=== PATIENT | male | born 1955 | race Caucasian/White ===

== ENCOUNTER → 2016-06-26 | Outpatient (CLI) | payer BC ==
[2016-06-09 11:00] VITALS: BP 150/72
[~2016-06-26] MED LIST: ASPI-482 PO; ASPI325T11 PO; ASPI81TA2 PO; CELE200C PO; GABA-586 PO; GLIM2TAB2 PO; GLUC1TAB44 PO; IRON18TA PO; LISI10TA2 PO; LOVA10TA PO; MAGN400C PO; METF100010 PO; MULT-91 PO; OMEG1CAP6 PO; OMEP40CA5 PO; POTA10TA10 PO; TIZA4CAP PO; TRAZ150T55 PO; TURM500C8 PO; WARF10TA PO
--- NOTE | 2016-06-26 14:24 | RAD ---
Left lower extremity venous ultrasound, 06/26/2016 : History: Left leg pain and swelling Duplex evaluation including grayscale, color flow and spectral Doppler analysis was performed. The femoral and popliteal veins show no filling defects to suggest DVT. The occlusive thrombus present in the left popliteal vein on the 05/31/2016 study has resolved. The visualized calf veins are unremarkable. IMPRESSION: Resolution of the previously seen left popliteal vein DVT.
== END | disposition home or self-care (01) ==
LOC: US 10:03
PROVIDERS: ATTEND Family Medicine
DX: I82.402 Acute embolism and thrombosis of unspecified deep veins of left lower extremity (principal); M79.605 Pain in left leg; R60.0 Localized edema; M79.89 Other specified soft tissue disorders
CPT/HCPCS: 93971

== ENCOUNTER → 2016-08-01 | Outpatient (CLI) | payer BC ==
[2016-06-09 11:00] VITALS: BP 150/72
--- NOTE | 2016-08-02 09:12 | RAD ---
Left lower extremity venous ultrasound, 08/01/2016 : History: Left calf pain and swelling Duplex evaluation including grayscale, color flow and spectral Doppler analysis was performed. The femoral and popliteal veins show no filling defects to suggest DVT. The visualized calf veins are unremarkable. Considerable subcutaneous edema is noted in the left calf. IMPRESSION: There is no sonographic evidence of deep vein thrombosis in the left lower extremity
== END | disposition home or self-care (01) ==
LOC: US 16:21
PROVIDERS: ATTEND Orthopaedic Surgery
DX: M79.662 Pain in left lower leg (principal)
CPT/HCPCS: 93971

== ENCOUNTER 2017-06-03 11:55 | Emergency (ER) | payer BC ==
[2017-06-03] MEDS ORDERED: KETOROLAC 60 MG/2 ML INJ. IM (12:15)
[2017-06-03] MEDS: ORPHENADRINE CITRATE 60 MG/2 ML VIAL. IM (12:22)
[2017-06-03] MEDS: fentaNYL PF VIAL 100 MCG/2 ML VIAL IM (12:22)
== END 2017-06-03 13:03 | disposition home or self-care (01) ==
LOC: ER 11:55
DX: S39.012A Strain of muscle, fascia and tendon of lower back, initial encounter (principal); E11.9 Type 2 diabetes mellitus without complications; E78.00 Pure hypercholesterolemia, unspecified; I10 Essential (primary) hypertension; Z88.2 Allergy status to sulfonamides; Z91.013 Allergy to seafood; Z91.048 Other nonmedicinal substance allergy status; X58.XXXA Exposure to other specified factors, initial encounter; Y93.89 Activity, other specified; Y99.8 Other external cause status; Y92.89 Other specified places as the place of occurrence of the external cause
CPT/HCPCS: 96372; 99284-25; J2360; J3010

== ENCOUNTER 2019-04-18 09:48 | Emergency (ER) | payer MEDICARE ==
[~2019-04-18] VITALS: Ht 177.8 cm; Wt 117.0 kg
[~2019-04-18 09:48] MED LIST changes: +ACET-704 PO; +ASPI-630 PO; -ASPI81TA2 PO; +CYCL10TA2 PO; -GABA-586 PO; +GABA300C18 PO; -GLIM2TAB2 PO; +GLIM2TAB3 PO; +MULT-629 PO; -MULT-91 PO; +OMEP40CA45 PO; -OMEP40CA5 PO; -POTA10TA10 PO; +POTA10TA12 PO; +TRAZ150T49 PO; -TRAZ150T55 PO; +TURM500C4 PO; -TURM500C8 PO; -WARF10TA PO; +WARF10TA45 PO
[2019-04-18 10:33] VITALS: BP 136/63
[2019-04-18] MEDS ORDERED: ORPHENADRINE CITRATE 60 MG/2 ML VIAL. IM ONE (11:00)
[2019-04-18] MEDS ORDERED: KETOROLAC 60 MG/2 ML VIAL. IM ONE (11:00)
[2019-04-18] MEDS ORDERED: ORPH100T PO (11:01)
[2019-04-18] MEDS ORDERED: NAPR-514 PO (11:01)
--- NOTE | 2019-04-18 11:02 | PHYS DOC ---
Past Medical History Past Medical History: Diabetes-Type II, High Cholesterol, Hypertension, Other Past Surgical History: Knee Replacement, Tonsillectomy Additional Past Surgical Histo: bilat knee, R foot, hernia, sinus Alcohol Use: None Drug Use: None Adult General Chief Complaint Chief Complaint: LOWER BACK PAIN OR INJURY HPI HPI Patient is a 63 year old male, accompanied by his , who presents to the emergency department with complaints of bilateral low back pain and spasms for the last 2 days. Patient states that the symptoms increased after he was seen by a chiropractor for an adjustment 2 days ago. Patient states initially after the adjustment his back felt better, but the relief only helped for a short period time. He denies any saddle anesthesia, or loss of bowel/bladder control. Patient denies any increased urinary frequency, hematuria, dysuria, incontinence, numbness, tingling, or weakness. Patient states he has a history of chronic back pain, he has been taking his oxycodone and Flexeril with no relief of his symptoms. Currently, he rates his pain a 10 out of 10 on the pain scale, the pain increases with movement. Review of Systems Review of Systems Constitutional: Denies fever or chills [] Eyes: Denies change in visual acuity, redness, or eye pain [] HENT: Denies nasal congestion or sore throat [] Respiratory: Denies cough or shortness of breath [] Cardiovascular: No additional information not addressed in HPI [] GI: Denies abdominal pain, nausea, vomiting, bloody stools or diarrhea [] : Denies dysuria or hematuria [] Musculoskeletal: Denies back pain or joint pain [] Integument: Denies rash or skin lesions [] Neurologic: Denies headache, focal weakness or sensory changes [] Endocrine: Denies polyuria or polydipsia [] All other systems were reviewed and found to be within normal limits, except as documented in this note. Current Medications Current Medications Current Medications Medications (Trade) Dose Ordered Sig/Nito Start Time Stop Time Status Last Admin Dose Admin Ketorolac Tromethamine (Toradol Im) 30 mg 1X ONCE 04/18/19 11:00 04/18/19 11:01 04/18/19 10:53 30 MG Orphenadrine Citrate (Norflex) 60 mg 1X ONCE 04/18/19 11:00 04/18/19 11:01 04/18/19 10:53 60 MG Allergies Allergies Allergies Coded Allergies Type Severity Reaction Last Updated Verified Sulfa (Sulfonamide Antibiotics) Allergy Intermediate 05/23/16 No shrimp Allergy Intermediate 05/23/16 Yes tree and shrub pollen Allergy Intermediate 05/23/16 Yes Uncoded Allergies Type Severity Reaction Last Updated Verified DUST Allergy Intermediate 03/09/16 Physical Exam Physical Exam Constitutional: Well developed, well nourished, no acute distress, non-toxic appearance. [] HENT: Normocephalic, atraumatic, bilateral external ears normal, oropharynx moist, no oral exudates, nose normal. [] Eyes: PERRLA, EOMI, conjunctiva normal, no discharge. [] Neck: Normal range of motion, no tenderness, supple, no stridor. [] Cardiovascular:Heart rate regular rhythm, no murmur [] Lungs & Thorax: Bilateral breath sounds clear to auscultation [] Abdomen: Bowel sounds normal, soft, no tenderness, no masses, no pulsatile masses. [] Skin: Warm, dry, no erythema, no rash. [] Back: No tenderness, no CVA tenderness. [] Extremities: No tenderness, no cyanosis, no clubbing, ROM intact, no edema. [] Neurologic: Alert and oriented X 3, normal motor function, normal sensory function, no focal deficits noted. [] Psychologic: Affect normal, judgement normal, mood normal. [] Current Patient Data Vital Signs Vital Signs Date Time Temp Pulse Resp B/P (MAP) Pulse Ox O2 Delivery O2 Flow Rate FiO2 04/18/19 10:33 97.9 83 16 136/63 (87) 99 Room Air 97.9 EKG EKG [] Radiology/Procedures Radiology/Procedures [] Course & Med Decision Making Course & Med Decision Making Pertinent Labs and Imaging studies reviewed. (See chart for details) [] Dragon Disclaimer Dragon Disclaimer This electronic medical record was generated, in whole or in part, using a voice recognition dictation system. Departure Departure Impression: Primary Impression: Low back pain Disposition: 01 HOME, SELF-CARE Condition: STABLE Referrals: RAFI DUGGAN MD (PCP) Patient Instructions: Back Pain, Adult, [id number] Additional Instructions: Fill the prescriptions and use as directed. Activity as tolerated. Apply ice or heat to sore areas as needed for comfort. Follow-up with your primary care doctor in the next 1-2 days. Return to the emergency room if your symptoms worsen. Scripts Naproxen (NAPROXEN) 500 Mg Tablet 1 TAB PO BID PRN for PAIN for 10 Days, #20 TAB 0 Refills Prov: JESSICA NEVES APRN 04/18/19 Orphenadrine Citrate (ORPHENADRINE CITRATE) 100 Mg Tablet.er 1 TAB PO BID PRN for PAIN for 10 Days, #20 TAB 0 Refills Prov: JESSICA NEVES APRN 04/18/19 Problem Qualifiers Primary Impression: Low back pain Chronicity: acute Back pain laterality: bilateral Sciatica presence: without sciatica Qualified Codes: M54.5 - Low back pain JESSICA NEVES APRN Apr 18, 2019 11:02
== END 2019-04-18 11:11 | disposition home or self-care (01) ==
LOC: ER 09:48
DX: M54.5 Low back pain (principal); E78.00 Pure hypercholesterolemia, unspecified; E11.9 Type 2 diabetes mellitus without complications; I10 Essential (primary) hypertension; Z96.653 Presence of artificial knee joint, bilateral; Z88.2 Allergy status to sulfonamides; Z91.013 Allergy to seafood; Z88.8 Allergy status to other drugs, medicaments and biological substances
CPT/HCPCS: 96372; 99284; J1885; J2360

== ENCOUNTER 2019-08-22 13:24 | Emergency (ER) | payer MEDICARE ==
[~2019-08-22] VITALS: Ht 177.8 cm; Wt 113.1 kg
[~2019-08-22 13:24] MED LIST changes: -GLIM2TAB3 PO; +GLIM2TAB7 PO; +NAPR-514 PO; +ORPH100T PO; -POTA10TA12 PO; +POTASSIUM CHLO10 ME1 PO
[2019-08-22] MEDS ORDERED: ONDANSETRON PF 4 MG/2 ML VIAL. ONE (14:06)
[2019-08-22] MEDS ORDERED: MORPHINE SULFATE 4 MG/ML VIAL. ONE (14:12)
[2019-08-22] MEDS: ONDANSETRON PF 4 MG/2 ML VIAL. IVP ONE (14:14)
[2019-08-22] MEDS: IV NORMAL SALINE 1000ML BAG 1,000 ML IV ONE (14:15)
[2019-08-22] MEDS: MORPHINE SULFATE 4 MG/ML VIAL. IV ONE ×2 (14:15→15:12)
[2019-08-22 14:28] LABS: BILIRUBIN,URINE NEGATIVE (NEG); CLARITY,URINE CLEAR; COLOR,URINE YELLOW; NITRITE,URINE NEGATIVE (NEG); PH,URINE 7.5 (<5.0-8.0); PROTEIN,URINE NEGATIVE (NEG-TRACE)
[2019-08-22 14:29] LABS: BASO % 0 % (0-3); EOS # 0.2 x10^3/uL (0.0-0.7); EOS % 4 % (0-3); HEMATOCRIT 54.4 % (39.0-53.0); HEMOGLOBIN 18.4 g/dL (13.0-17.5); LYMPH # 1.7 x10^3/uL (1.0-4.8); LYMPH % 32 % (24-48); MEAN CORPUSCULAR HEMOGLOBIN 30 pg (25-35); MEAN CORPUSCULAR HGB CONC 34 g/dL (31-37); MEAN CORPUSCULAR VOLUME 88 fL (79-100); MONO # 0.5 x10^3/uL (0.0-1.1); MONO % 10 % (0-9); NEUT # 2.9 x10^3/uL (1.8-7.7); NEUT % 54 % (31-73); PLATELET COUNT 200 x10^3/uL (140-400); RED BLOOD COUNT 6.16 x10^6/uL (4.30-5.70); RED CELL DISTRIBUTION WIDTH 15.3 % (11.5-14.5); WHITE BLOOD COUNT 5.4 x10^3/uL (4.0-11.0)
[2019-08-22 14:40] LABS: BACTERIA,URINE MODERATE /HPF (0-FEW); SQUAMOUS EPITHELIAL CELL,UR OCC /LPF
[2019-08-22 14:48] LABS: CALCIUM 9.1 mg/dL (8.5-10.1); GFR 74.8; POTASSIUM 3.4 mmol/L (3.5-5.1)
[2019-08-22 14:55] LABS: ALBUMIN 4.3 g/dL (3.4-5.0); ALBUMIN/GLOBULIN RATIO 1.4 (1.0-1.7); TOTAL PROTEIN 7.4 g/dL (6.4-8.2)
[2019-08-22] MEDS: KETOROLAC 15 MG/ML VIAL. IV ONE (15:10)
--- NOTE | 2019-08-22 15:18 | RAD ---
PQRS Compliance Statement: One or more of the following individualized dose reduction techniques were utilized for this examination: 1. Automated exposure control 2. Adjustment of the mA and/or kV according to patient size 3. Use of iterative reconstruction technique CT ABDOMEN PELVIS WO CONTRAST Clinical Indication: Left lower quadrant pain. Comparison: CT abdomen and pelvis with contrast June 06, 2016. Technique: Helical CT imaging of the abdomen and pelvis is performed without IV or oral contrast. Findings: Evaluation of solid organs and bowel is limited without oral and IV contrast, decreasing sensitivity for detection of pathology. Lung bases are clear. Coronary artery disease. Cardiac size normal. Moderate hepatomegaly. Mild fatty infiltration of the liver. Gallbladder, spleen, pancreas, adrenal glands, and abdominal aorta caliber are normal. Lymph node medial to the head of the pancreas is stable. There is a 2.1 cm right renal cyst. Left lower pole renal cyst is stable. No follow-up imaging is recommended per consensus recommendations based on imaging criteria. There is no right hydronephrosis. 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 There is mild left hydroureteronephrosis secondary to a 6 mm ureteral calculus at the pelvic brim, image 168. The ureters are otherwise normal. There is moderate left perinephric stranding. Stomach unremarkable. There is no dilated small bowel. There is moderate distal colon diverticulosis. No abdominal adenopathy or free fluid. The urinary bladder is normal. Prostate size upper limits of normal. The seminal vesicles are symmetric. No pelvic free fluid. Inguinal lymph nodes appear benign. No acute bone abnormality. IMPRESSION: 1. Mild left obstructive uropathy secondary to a 6 mm ureteral calculus at the pelvic brim. 2. Moderate distal colon diverticulosis. 3. Moderate hepatomegaly. Mild fatty infiltration of the liver. Electronically signed by: Ata Andrews MD (08/22/2019 3:15 PM) [id number]
[2019-08-22 15:30] VITALS: BP 147/78
[2019-08-22] MEDS ORDERED: PROC10TA57 PO (16:00)
[2019-08-22] MEDS ORDERED: TAMS0.4C97 PO (16:00)
--- NOTE | 2019-08-22 16:26 | PHYS DOC ---
Past Medical History Past Medical History: Diabetes-Type II, High Cholesterol, Hypertension, Other Past Surgical History: Knee Replacement, Tonsillectomy Additional Past Surgical Histo: bilat knee, R foot, hernia, sinus Smoking Status: Former Smoker Alcohol Use: None Drug Use: None Adult General Chief Complaint Chief Complaint: ABDOMINAL PAIN HPI HPI Patient is a 64 year old [male with sudden onset left flank pain that started a couple hours ago which really left lower quadrant will be in the flank radiates to the groin associated with nausea and vomiting and urinary hesitancy has never had a urinary tract infection or kidney stone before. Symptoms are severe in nature Review of Systems Review of Systems Constitutional: Denies fever or chills [] Eyes: Denies change in visual acuity, redness, or eye pain [] HENT: Denies nasal congestion or sore throat [] Respiratory: Denies cough or shortness of breath [] Cardiovascular: No additional information not addressed in HPI [] hesitancy All other systems were reviewed and found to be within normal limits, except as documented in this note. Current Medications Current Medications Current Medications Medications (Trade) Dose Ordered Sig/Nito Start Time Stop Time Status Last Admin Dose Admin Ketorolac Tromethamine (Toradol 15mg Vial) 15 mg 1X ONCE 08/22/19 15:15 08/22/19 15:16 DC 08/22/19 15:10 15 MG Morphine Sulfate (Morphine Sulfate) 4 mg 1X ONCE 08/22/19 15:00 08/22/19 15:01 DC 08/22/19 15:12 4 MG Ondansetron HCl (Zofran) 4 mg 1X ONCE 08/22/19 14:15 08/22/19 14:16 DC 08/22/19 14:14 4 MG Sodium Chloride 1,000 ml @ 1,000 mls/hr 1X ONCE 08/22/19 14:15 08/22/19 15:14 DC 08/22/19 14:15 1,000 MLS/HR Allergies Allergies Allergies Coded Allergies Type Severity Reaction Last Updated Verified Sulfa (Sulfonamide Antibiotics) Allergy Intermediate 05/23/16 No shrimp Allergy Intermediate 05/23/16 Yes tree and shrub pollen Allergy Intermediate 05/23/16 Yes Uncoded Allergies Type Severity Reaction Last Updated Verified DUST Allergy Intermediate 03/09/16 Physical Exam Physical Exam Constitutional: Well developed, well nourished, moderate distress sweaty (he says he sweats regularly even when drinking coffee) HENT: Normocephalic, atraumatic, bilateral external ears normal, oropharynx moist, no oral exudates, nose normal. [] Eyes: PERRLA, EOMI, conjunctiva normal, no discharge. [] Neck: Normal range of motion, no tenderness, supple, no stridor. [] Cardiovascular:Heart rate regular rhythm, no murmur [] Lungs & Thorax: Bilateral breath sounds clear to auscultation [] Abdomen: Bowel sounds normal, soft, left lower quadrant tenderness Skin: Warm, dry, no erythema, no rash. [] Back: No tenderness, no CVA tenderness. [] Extremities: No tenderness, no cyanosis, no clubbing, ROM intact, no edema. [] Neurologic: Alert and oriented X 3, normal motor function, normal sensory function, no focal deficits noted. [] Psychologic: Affect normal, judgement normal, mood normal. [] Current Patient Data Vital Signs Vital Signs Date Time Temp Pulse Resp B/P (MAP) Pulse Ox O2 Delivery O2 Flow Rate FiO2 08/22/19 15:30 78 147/78 (101) 99 Room Air 08/22/19 13:49 98.0 22 98.0 Lab Values Laboratory Tests Test 08/22/19 14:15 White Blood Count 5.4 x10^3/uL (4.0-11.0) Red Blood Count 6.16 x10^6/uL (4.30-5.70) H Hemoglobin 18.4 g/dL (13.0-17.5) H Hematocrit 54.4 % (39.0-53.0) H Mean Corpuscular Volume 88 fL (79-100) Mean Corpuscular Hemoglobin 30 pg (25-35) Mean Corpuscular Hemoglobin Concent 34 g/dL (31-37) Red Cell Distribution Width 15.3 % (11.5-14.5) H Platelet Count 200 x10^3/uL (140-400) Neutrophils (%) (Auto) 54 % (31-73) Lymphocytes (%) (Auto) 32 % (24-48) Monocytes (%) (Auto) 10 % (0-9) H Eosinophils (%) (Auto) 4 % (0-3) H Basophils (%) (Auto) 0 % (0-3) Neutrophils # (Auto) 2.9 x10^3/uL (1.8-7.7) Lymphocytes # (Auto) 1.7 x10^3/uL (1.0-4.8) Monocytes # (Auto) 0.5 x10^3/uL (0.0-1.1) Eosinophils # (Auto) 0.2 x10^3/uL (0.0-0.7) Basophils # (Auto) 0.0 x10^3/uL (0.0-0.2) Urine Collection Type Unknown Urine Color Yellow Urine Clarity Clear Urine pH 7.5 (<5.0-8.0) Urine Specific Stuart >=1.030 (1.000-1.030) Urine Protein Negative mg/dL (NEG-TRACE) Urine Glucose (UA) >=1000 mg/dL (NEG) Urine Ketones (Stick) 15 mg/dL (NEG) Urine Blood Trace (NEG) Urine Nitrite Negative (NEG) Urine Bilirubin Negative (NEG) Urine Urobilinogen Dipstick 1.0 mg/dL (0.2 mg/dL) Urine Leukocyte Esterase Negative (NEG) Urine RBC 6-10 /HPF (0-2) Urine WBC 1-4 /HPF (0-4) Urine Squamous Epithelial Cells Occ /LPF Urine Bacteria Moderate /HPF (0-FEW) Sodium Level 138 mmol/L (136-145) Potassium Level 3.4 mmol/L (3.5-5.1) L Chloride Level 96 mmol/L (98-107) L Carbon Dioxide Level 28 mmol/L (21-32) Anion Gap 14 (6-14) Blood Urea Nitrogen 14 mg/dL (8-26) Creatinine 1.0 mg/dL (0.7-1.3) Estimated GFR (Cockcroft-Gault) 74.8 BUN/Creatinine Ratio 14 (6-20) Glucose Level 250 mg/dL (70-99) H Calcium Level 9.1 mg/dL (8.5-10.1) Total Bilirubin 1.0 mg/dL (0.2-1.0) Aspartate Amino Transferase (AST) 45 U/L (15-37) H Alanine Aminotransferase (ALT) 41 U/L (16-63) Alkaline Phosphatase 58 U/L (46-116) Troponin I Quantitative < 0.017 ng/mL (0.000-0.055) Total Protein 7.4 g/dL (6.4-8.2) Albumin 4.3 g/dL (3.4-5.0) Albumin/Globulin Ratio 1.4 (1.0-1.7) Lipase 89 U/L (73-393) Laboratory Tests 08/22/19 14:15 Laboratory Tests 08/22/19 14:15 EKG EKG [] Radiology/Procedures Radiology/Procedures [] Impressions: IMPRESSION: 1. Mild left obstructive uropathy secondary to a 6 mm ureteral calculus at the pelvic brim. 2. Moderate distal colon diverticulosis. 3. Moderate hepatomegaly. Mild fatty infiltration of the liver. Electronically signed by: Ata Senior MD (08/22/2019 3:15 PM) [id number] DICTATED and SIGNED BY: ATA SENIOR MD DATE: 08/22/19 1515 Course & Med Decision Making Course & Med Decision Making Pertinent Labs and Imaging studies reviewed. (See chart for details) [] Kidney stone renal function is normal no signs of obstructed infected stone. Patient had resolution of the pain after 2 doses of morphine and actually was really the dose of Toradol that made his pain go away completely. He ambulated in steady condition at the time of discharge with no pain. He has hydrocodone at home that he uses I recommended that he use this around the clock for the next 48 hours take Zofran as needed for nausea and vomiting use Flomax follow-up with a urologist within 3 to 5 days and given strict return precautions to come back for fever greater than 100.4 refractory pain significant vomiting or any other new symptoms or concerns and he voiced understanding. I think he is stable for discharge at this time with a 6 mm kidney stone and lab work as noted above. Dragon Disclaimer Dragon Disclaimer This electronic medical record was generated, in whole or in part, using a voice recognition dictation system. Departure Departure Impression: Primary Impression: Kidney stone Disposition: 01 HOME, SELF-CARE Condition: IMPROVED Patient Instructions: Kidney Stones, [id number] Scripts Prochlorperazine Maleate (Compazine) 10 Mg Tablet 1 TAB PO Q6HRS PRN for NAUSEA/VOMITING, #14 TAB 0 Refills Prov: JENNIFER FERNÁNDEZ MD 08/22/19 Tamsulosin Hcl (FLOMAX) 0.4 Mg Cap.er.24h 1 CAP PO DAILY, #30 CAP 0 Refills Prov: JENNIFER FERNÁNDEZ MD 08/22/19 JENNIFER FERNÁNDEZ MD Aug 22, 2019 16:26
--- NOTE | 2019-08-23 03:49 | EKG ---
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
== END 2019-08-22 16:22 | disposition home or self-care (01) ==
LOC: ER 13:24
DX: N20.0 Calculus of kidney (principal); R11.2 Nausea with vomiting, unspecified; E11.9 Type 2 diabetes mellitus without complications; E78.00 Pure hypercholesterolemia, unspecified; I10 Essential (primary) hypertension; Z87.891 Personal history of nicotine dependence; Z88.2 Allergy status to sulfonamides; Z91.013 Allergy to seafood; Z88.8 Allergy status to other drugs, medicaments and biological substances
CPT/HCPCS: 36415; 74176; 80053; 81001; 83690; 84484; 85025; 87086; 93005; 96361; 96374; 96375; 96376; 99285; J1885; J2270; J2405; J7030; 96360

== ENCOUNTER 2021-04-30 10:48 | Emergency (ER) | payer MEDICARE ==
[~2021-04-30] VITALS: Ht 177.8 cm; Wt 110.0 kg
[~2021-04-30 10:48] MED LIST changes: +CYCL10TA19 PO; -CYCL10TA2 PO; +LISI10TA16 PO; -LISI10TA2 PO; -OMEP40CA45 PO; +OMEP40CA7 PO; +PROC10TA57 PO; +TAMS0.4C97 PO
--- NOTE | 2021-04-30 11:15 | PHYS DOC ---
Past Medical History Past Medical History: Diabetes-Type II, High Cholesterol, Hypertension, Other Additional Past Medical Histor: SLEEP APNEA (LETICIA CASEY) Past Surgical History: Knee Replacement Additional Past Surgical Histo: CARPULTUNEL, NOSE, HAND (LETICIA CASEY) Smoking Status: Never Smoker Alcohol Use: Rarely Drug Use: None (LETICIA CASEY) General Adult EDM: Chief Complaint: LACERATION/AVULSION HPI: HPI: Patient is a 65 year old male who presents with laceration to his left forearm. Patient states he was using a picker box operator at home when he cut his arm. He reports the blade is fairly new. He reports mild pain surrounding the laceration and some active bleeding. Patient denies dizziness, weakness, paresthesias, pain to his left hand. Patient is unsure of the date of his last tetanus vaccination. Patient has no other complaints at this time. (LETICIA CASEY) Review of Systems: Review of Systems: ROS negative except as mentioned in HPI. (LETICIA CASEY) Heart Score: C/O Chest Pain: No (LETICIA CASEY) Allergies: Allergies: Allergies Coded Allergies Type Severity Reaction Last Updated Verified Sulfa (Sulfonamide Antibiotics) Allergy Intermediate 05/23/16 No shrimp Allergy Intermediate 05/23/16 Yes tree and shrub pollen Allergy Intermediate 05/23/16 Yes Uncoded Allergies Type Severity Reaction Last Updated Verified DUST Allergy Intermediate 03/09/16 (LETICIA CASEY) Physical Exam: PE: Constitutional: Well developed, well nourished, well groomed, no acute distress, non-toxic appearance. Cardiovascular: Heart rate regular rhythm, no murmur. Lungs & Thorax: Bilateral breath sounds clear to auscultation. Skin: Approximately 3 mm horizontal laceration with superficial abrasion on either side to the ventral aspect of the left mid forearm proximal to the wrist. Skin otherwise warm, dry, no erythema, no rash. Extremities: No tenderness, no cyanosis, no clubbing, ROM intact, no edema. Neurologic: Alert and oriented x4, normal motor function, normal sensory function, no focal deficits noted. (LETICIA CASEY) Current Patient Data: Vital Signs: Vital Signs Date Time Temp Pulse Resp B/P (MAP) Pulse Ox O2 Delivery O2 Flow Rate FiO2 04/30/21 11:59 94 18 129/62 (84) 98 Room Air 04/30/21 10:50 98.2 108 16 162/78 (106) 97 Room Air 98.2 (LETICIA CASEY) Course & Med Decision Making: Course & Med Decision Making Pertinent Labs and Imaging studies reviewed. (See chart for details) On exam after 10 mins ice pack and pressure application, no active bleeding appreciated. Tetanus vaccination updated in the department laceration repair as noted below. Patient tolerated procedure well. He understands sutured wound care instruction and return precautions. Patient understands and is agreeable to discharge plan. (LETICIA CASEY) Dragon Disclaimer: Dragon Disclaimer: This electronic medical record was generated, in whole or in part, using a voice recognition dictation system. (LETICIA CASEY) Laceration Repair Lac Repair Indication: Laceration to distal left forearm Procedure: The patient was placed in the appropriate position and anesthesia around the laceration was 2 mL 1% lidocaine with epinephrine. The area was then cleansed with Betadine solution. The laceration was closed with 3 simple interrupted 4-0 nylon sutures. The wound area was then dressed with nonadhesive gauze. Total repaired wound length: 3 mm. Other Items: The patient tolerated the procedure very well. Complications: No complications. 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 I was available for consultation as needed during the patient's visit in the emergency department. I agree with the clinical impression, plan, and disposition. (LIGIA GARCIA DO) LETICIA CASEY Apr 30, 2021 11:15 LIGIA GARCIA DO May 01, 2021 06:56
[2021-04-30] MEDS ORDERED: DIPH,PERTUSS(ACELL),TET VAC/PF 0.5 ML SYRINGE. VAX IM ONE (11:30)
[2021-04-30] MEDS ORDERED: LIDOCAINE 1%/EPI 1:100,000 20 ML VIAL. INJ ONE (11:30)
[2021-04-30 11:59] VITALS: BP 129/62
== END 2021-04-30 12:11 | disposition home or self-care (01) ==
LOC: ER 10:48
DX: S51.812A Laceration without foreign body of left forearm, initial encounter (principal); E11.9 Type 2 diabetes mellitus without complications; E78.00 Pure hypercholesterolemia, unspecified; I10 Essential (primary) hypertension; Z88.2 Allergy status to sulfonamides; Z88.8 Allergy status to other drugs, medicaments and biological substances; Z91.013 Allergy to seafood; Y28.8XXA Contact with other sharp object, undetermined intent, initial encounter; Y93.89 Activity, other specified; Y92.89 Other specified places as the place of occurrence of the external cause; Y99.8 Other external cause status
CPT/HCPCS: 12001; 90471; 90715; 99283; J3490